=== PATIENT | female | born 2005 | race Caucasian/White ===

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

== ENCOUNTER → 2024-01-13 07:53 | Outpatient (BNVA) | payer MEDICAID, SELFPAY | PROVIDERS: PCP Student in an Organized Health Care Education/Training Program; Visit Provider Obstetrics & Gynecology | DX: Z34.91 Encounter for supervision of normal pregnancy, unspecified, first trimester (principal) | CPT/HCPCS: 82950; 84315 ==

== ENCOUNTER → 2024-02-03 12:20 | Outpatient (BNVA) | payer MEDICAID, SELFPAY | PROVIDERS: PCP Student in an Organized Health Care Education/Training Program; Visit Provider Obstetrics & Gynecology | DX: Z34.90 Encounter for supervision of normal pregnancy, unspecified, unspecified trimester (principal) | CPT/HCPCS: 76816 ==

== ENCOUNTER 2024-02-16 15:24 | Emergency (ER) | payer MEDICAID, SELFPAY ==
[2024-02-16 15:48] VITALS: BP 103/61; PULSE 70; RESP 14; TEMP 37.1; O2SAT 97
[2024-02-16 17:53] VITALS: BP 105/63; PULSE 97; RESP 16; O2SAT 100
--- NOTE | 2024-02-16 17:53 | ED_ITS ---
HPI - Nausea/Vomiting/Diarrhea 2 General: Chief complaint: Nausea/Vomiting/Diarrhea Stated complaint: Swollen rectum Time Seen by Provider: 02/16/24 17:06 Source: patient Mode of arrival: ambulatory Limitations: no limitations History of Present Illness: Patient presents emergency department today accompanied by significant other for evaluation treatment of multiple episodes of diarrhea today and rectal pain. Patient states that she had a meal that did not sit well with her last night and began having diarrhea. She states it is liquidy, brown, and somewhat green in color. She states that her in-laws also have similar symptoms from eating the same meal last night. Patient reports developing pain around her rectum now with bowel movements and while trying to wipe clean. She has not noticed any blood. She has not been running fever. She states she had an episode of vomiting this morning but has not had any more since. Patient still feels movement regularly. Review of Systems 2 General: Reports: 10 or more systems reviewed and unremarkable except in HPI and below PFSH ED 2 PFSH: Medical History Psychiatric care MTHFR mutation Family History Other Adopted Social History Substance/Drug Use: never Physical Exam 2 Const: COMMON NORMALS: no acute distress, patient oriented x3 and alert HENMT: COMMON NORMALS: normocephalic, atraumatic, hearing grossly normal bilaterally and moist oral mucous membranes HEAD & SCALP: normocephalic and atraumatic Eye: COMMON NORMALS: Equal, round and reactive pupils present, EOMs intact bilaterally and conjunctivae normal CONJUNCTIVA: Yes conjunctivae normal P UPIL: Yes Equal, round and reactive pupils present Neck/C-Spine: COMMON NORMALS: full ROM and no JVD Lymph: LYMPHATIC: no lymphadenopathy noted Resp: COMMON NORMALS: normal respiratory effort, No retractions, No use of accessory muscles and clear to auscultation bilaterally AUSCULTATION: clear to auscultation bilaterally Cardio: COMMON NORMALS: no JVD, regular rate and regular rhythm RATE: r egular rate RHYTHM: regular rhythm GI: OTHER: Normoactive bowel sounds. Patient has active kicking on palpation and examination of the abdomen. No specific tenderness to the abdomen on palpation. Patient's rectal examination does show some generalized erythema in the area of the rectum. Patient has what appears to be an old skin tag. On investigation further into the rectum, patient is found to have increased vascularity and a purple discoloration just inside the anal opening. No signs of any protruding internal hemorrhoids. No signs of fissuring. No fresh or dried blood present. No signs of lesions, rashes, vesicles, or signs of perirectal abscess. : COMMON NORMALS: Yes no CVA tenderness BLADDER/KIDNEY EXAM: Yes no CVA tenderness Back/Pelvis: COMMON NORMALS: no CVA tenderness, no thoracic nor lumbar tenderness and thoraco-lumbar ROM normal Extremity: COMMON NORMALS: normal to inspection, full ROM and capillary refill normal Neuro: COMMON NORMALS: patient oriented x3 SENSORIUM/ORIENTATION: Yes alert Psych: COMMON NORMALS: mental status grossly normal, Normal thought process present, cooperative, normal affect and activity/motor behavior normal T HOUGHT PROCESS: Normal thought process present Skin: COMMON NORMALS: no rashes or lesions noted and no wounds GENERAL SKIN EXAM: no rashes or lesions noted Course 2 Vital Signs: Vital signs: Vital Signs Temperature 98.8 F 02/16/24 15:48 Pulse Rate 65 02/16/24 21:00 Respiratory Rate 16 02/16/24 21:00 Blood Pressure 106/68 02/16/24 21:00 Pulse Oximetry 99 02/16/24 21:00 Oxygen Delivery Me thod Room Air 02/16/24 21:00 MDM - Nausea/Vomiting/Diarrhea Medical Decision Making Patient presents to the emergency department today for evaluation treatment of approximately 24 hours of multiple episodes of diarrhea. She indicated no signs of bleeding in the stool or on the toilet tissue though she feels tender and sore around her rectum. Patient's rectal examination showed a skin tag but no signs of fissures, fresh blood, or dried blood. Patient had some erythema in the area but no signs of any swelling concerning of a perirectal abscess at this time. Just inside the patient's anus there was dark purple discoloration concerning for engorgement of vasculature suspicious for this being the cause of her rectal discomfort. Patient was not able to produce a stool specimen here in the emergency department for testing. Lab work shows anemia which, previous lab work has not shown any signs of anemia. When asked, patient indicated she has never been told she is anemic in the past. At this time I do not think patient has a GI bleed as her vital signs have remained stable-she is normotensive and nontachycardic. She also indicated no signs of bleeding in her stool. I did mention this to her and requested she have a recheck of these labs with either her primary care or CLOTH WINDER MACHINE OPERATOR in a few days. Warned her of the symptoms of anemia including dizziness, shortness of breath, pale skin, intense fatigue. She will be watching for these. Patient does have findings of urinary tract infection. First dose of antibiotics provided here in the emergency department as well as an application of Anusol to help with her rectal discomfort. She will need to continue outpatient antibiotics as well. Patient was given an informational handout about approved [id number] medications in that indicates treatment for diarrhea, hemorrhoids, and constipation for her to have on hand. Strict return precautions were given to her given her status but would request she follow-up with her CLOTH WINDER MACHINE OPERATOR here in a couple of days. She verbalizes understanding and agreement to treatment plan. Differential Diagnosis Likely gastroenteritis; Unlikely traveler's diarrhea, food poisoning, drug- induced nausea and vomiting or dehydration Lab Data 02/16/24 18:24 02/16/24 18:24 Laboratory Results WBC 12.06 10^3/uL (4.5-13.0) 02/16/24 18:24 RBC 3.31 10^6/uL (3.85-5.65) L 02/16/24 18:24 Hgb 9.70 g/dL (12.4-14.8) L 02/16/24 18:24 Hct 29.6 % (36-47) L 02/16/24 18:24 MCV 89.4 fl (85-98) 02/16/24 18:24 MCH 29.3 pg (27-33) 02/16/24 18:24 MCHC 32.8 g/dL (30-55) 02/16/24 18:24 RDW 14.1 % (12.1-15.1) 02/16/24 18:24 Plt Count 281 10^3/cmm (157-399) 02/16/24 18:24 MPV 10.0 fL (7.4-10.4) 02/16/24 18:24 Neut % (Auto) 69.3 % 02/16/24 18:24 Lymph % (Auto) 20.6 % 02/16/24 18:24 Walker % (Auto) 7.0 % 02/16/24 18:24 Eos % (Auto) 2.0 % 02/16/24 18:24 Baso % (Auto) 0.5 % 02/16/24 18:24 Neut # (Auto) 8.36 10^3/uL (1.8-8.0) H 02/16/24 18:24 Lymph # (Auto) 2.5 10^3/uL (1.5-6.5) 02/16/24 18:24 Walker # (Auto) 0.9 10^3/uL (0.2-0.9) 02/16/24 18:24 Eos # (Auto) 0.2 10^3/uL (0.0-0.8) 02/16/24 18:24 Baso # (Auto) 0.1 10^3/uL (0.0-0.1) 02/16/24 18:24 Nucleated RBC % (auto) 0 % 02/16/24 18:24 Nucleated RBCs # 0.0 /100WBC 02/16/24 18:24 Sodium 141 mmol/L (136-145) 02/16/24 18:24 Potassium 3.7 mmol/L (3.5-5.1) 02/16/24 18:24 Chloride 110 mmol/L (98-107) H 02/16/24 18:24 Carbon Dioxide 21 mmol/L (22-29) L 02/16/24 18:24 Anion Gap 13.7 (5-19) 02/16/24 18:24 BUN 6 mg/dL (6-20) 02/16/24 18:24 Creatinine 0.4 mg/dL (0.5-0.9) L 02/16/24 18:24 GFR Calculation 205.6 mL/min (90-130) H 02/16/24 18:24 Glucose 91 mg/dL (65-115) 02/16/24 18:24 Calculated Osmolality 289 mOsm/kg (285-295) 02/16/24 18:24 Calcium 8.2 mg/dL (8.5-10.5) L 02/16/24 18:24 Total Bilirubin 0.2 mg/dL (0.15-1.2) 02/16/24 18:24 AST 20 U/L (0-32) 02/16/24 18:24 ALT 15 U/L (0-33) 02/16/24 18:24 Alkaline Phosphatase 68 U/L (35-105) 02/16/24 18:24 Total Protein 6.4 g/dL (6.6-8.7) L 02/16/24 18:24 Albumin 3.5 g/dL (3.5-5.2) 02/16/24 18:24 Globulin 2.9 g/dL (1.3-4.6) 02/16/24 18:24 Urine Color Yellow (Yellow) 02/16/24 18:20 Urine Appearance Slightly cloudy (CLEAR) 02/16/24 18:20 Urine pH 6.5 (5-7) 02/16/24 18:20 Ur Specific [place] 1.015 (1.005-1.030) 02/16/24 18:20 Urine Protein Neg (Negative) 02/16/24 18:20 Urine Glucose (UA) Norm (Normal) 02/16/24 18:20 Urine Ketones 1+ (Negative) H 02/16/24 18:20 Urine Blood Neg (Negative) 02/16/24 18:20 Urine Nitrate Negative (Negative) 02/16/24 18:20 Urine Bilirubin Neg (Negative) 02/16/24 18:20 Urine Urobilinogen Norm mg/dL (Negative) 02/16/24 18:20 Ur Leukocyte Esterase 1+ (Negative) H 02/16/24 18:20 Urine RBC None /hpf (0-2) 02/16/24 18:20 Urine WBC 40-55 /hpf (0-5) H 02/16/24 18:20 Ur Squamous Epith Cells 5-10 /hpf (0-5) H 02/16/24 18:20 Amorphous Sediment Not Reportable 02/16/24 18:20 Urine Bacteria 3+ /hpf (NONE) H 02/16/24 18:20 Urine Mucus 2+ /hpf 02/16/24 18:20 No radiology studies performed this visit Discharge Plan Discharge Patient Disposition: Home Clinical Impression: Gastroenteritis, Anemia affecting , UTI in Condition: Stable Prescriptions: New cephalexin 500 mg capsule 500 mg PO Q6H 10 Days Qty: 40 0RF Anusol-HC 2.5 % cream with perineal applicator 1 applic OR TID PRN (Reason: pain) Qty: 30 0RF No Action albuterol sulfate [ProAir HFA] 90 mcg/actuation HFA aerosol inhaler 2 puff inhalation Q6H PRN (Reason: shortness of breath or wheezing) Qty: 8.5 0RF (DME) Aerochamber Plus Z Stat Spacer See Rx Instructions .Route Qty: 1 0RF Rx Instructions: As directed nicotine 14 mg/24 hr patch 24 hour 1 patch transdermal DAILY Qty: 28 3RF Discharge Orders: Discharge ED (Routine); Ordered 02/16/24 Ordered By: Alejandra Kern Discharge Diet: Usual diet Discharge Activity: Increase activity as tolerated Patient Instructions: Hemorrhoids, Anemia (ED), Urinary Tract Infection in (ED), Rectal Pain (ED) Activity Restrictions/Additional Instructions: Rectal examination today revealed no signs of any acute concerns such as a perirectal abscess. Will you do have a skin tag, I do not see any obvious signs of external hemorrhoids. However, just within your anal opening there is noticeable increased vascularity causing the skin to be a purple color. This can be due to increased pressure on your pelvis from your and, irritated by your recent diarrhea. You most likely have a gastroenteritis secondary from something you ate but, as we were unable to gather a sample today, were not able to do any testing for bacterial cause. We did find a bacterial urinary tract infection and provided your first dose of medication here in the ER. I am also providing you a prescription to be picked up and continued for Joseph in the morning. We provided you some medication for rectal discomfort here in the ER and have also sent a prescription to the pharmacy for you to have and continue. It contains a rectal applicator tip which will allow you to insert the medication further up into your rectum where you are finding of increased vascularity was noted. You can also do sitz bath's to help with rectal discomfort. You can apply Tucks medicated witch lea pads to the area for comfort. You can also use a blue top Dermoplast to help numb the area of any discomfort. Be sure you only use the blue top as the red top will actually cause a burning sensation. We found signs of anemia on your evaluation today but, as you do not have any signs of rectal bleeding and, have no previous history of lower hemoglobin levels, I would like you to have follow-up with either your primary care doctor or your CLOTH WINDER MACHINE OPERATOR in approximately 48 to 72 hours for recheck of these labs. As we discussed, anemia symptoms can be dizziness, lightheadedness, shortness of breath, or intense fatigue. If these begin to develop you need to be seen and reevaluated sooner. Watch for any change or worsening in your condition. If there are any change or worsening you need to be seen and reevaluated. This would include any signs of blood per rectum, fever, or abdominal pains. Increase your clear fluids to stay well-hydrated during this time. Coding Level of Care Code ED Systems Software Specialist for Prabhjot Marrero
[2024-02-16 18:36] LABS: Basophils # 0.1 10^3/uL (0.0-0.1); Basophils % 0.5 %; Eosinophils # 0.2 10^3/uL (0.0-0.8); Hematocrit 29.6 % (36-47); Lymphocytes # 2.5 10^3/uL (1.5-6.5); Lymphocytes % 20.6 %; Mean Corpuscular HGB Conc 32.8 g/dL (30-55); Mean Corpuscular Hemoglobin 29.3 pg (27-33); Mean Corpuscular Volume 89.4 fl (85-98); Monocytes # 0.9 10^3/uL (0.2-0.9); Neutrophils # 8.36 10^3/uL (1.8-8.0); Neutrophils % 69.3 %; Nucleated Red Blood Cells % 0 %; Platelet Count 281 10^3/cmm (157-399); Red Blood Count 3.31 10^6/uL (3.85-5.65); Red Cell Distribution Width 14.1 % (12.1-15.1); White Blood Count 12.06 10^3/uL (4.5-13.0)
[2024-02-16] MEDS: sodium chloride 0.9% 1,000 ML 999 ML IV (18:36)
[2024-02-16 18:49] LABS: Albumin Level 3.5 g/dL (3.5-5.2); Alkaline Phosphatase 68 U/L (35-105); Anion Gap 13.7 (5-19); Aspartate Amino Transferase 20 U/L (0-32); Blood Urea Nitrogen 6 mg/dL (6-20); Calcium 8.2 mg/dL (8.5-10.5); Carbon Dioxide 21 mmol/L (22-29); Chloride 110 mmol/L (98-107); Creatinine Clr Calc Pharmacy 208.1741; Globulin 2.9 g/dL (1.3-4.6); Glomerular Filtration Rate 205.6 mL/min (90-130); Glucose 91 mg/dL (65-115); Osmolality Calculated 289 mOsm/kg (285-295); Potassium 3.7 mmol/L (3.5-5.1); Sodium 141 mmol/L (136-145); Total Bilirubin 0.2 mg/dL (0.15-1.2); Total Protein 6.4 g/dL (6.6-8.7)
[2024-02-16 18:54] LABS: Add Urine Microscopic? YES; Bilirubin Urine Neg (Negative); Blood Urine Neg (Negative); Glucose Urine UA Norm (Normal); Ketones Urine 1+ (Negative); Leukocyte Esterase Urine 1+ (Negative); Nitrate Urine Negative (Negative); Protein Urine Neg (Negative); Specific Gravity, Urine 1.015 (1.005-1.030); Urine Appearance Slightly Cloudy (CLEAR); Urine Color Yellow (Yellow); Urobilinogen Urine Norm (Negative); pH Urine 6.5 (5-7)
[2024-02-16 18:55] LABS: Add Urine Culture? Yes; Bacteria Urine 3+ /hpf; Mucus Urine 2+ /hpf; WBC Urine 40-55 /hpf (0-5)
[2024-02-16 19:00] VITALS: BP 108/65; PULSE 77; RESP 14; O2SAT 99
[2024-02-16 19:00] LABS: Alanine Aminotransferase 15 U/L (0-33)
[2024-02-16] MEDS: cefTRIAXone 1,000 MG in sodium chloride 0.9% (plus) 50 ML 100 MG IV (20:19)
[2024-02-16 21:00] VITALS: BP 106/68; PULSE 65; RESP 16; O2SAT 99
[2024-02-16] MEDS: hydrocortisone 2.5% cream 28 gm 1 APPLIC PR (21:02)
== END 2024-02-16 21:45 | disposition home or self-care (01) ==
PROVIDERS: Physician Assistant; Emergency Provider Physician Assistant
DX: O23.40 Unspecified infection of urinary tract in pregnancy, unspecified trimester (principal); N39.0 Urinary tract infection, site not specified; O99.019 Anemia complicating pregnancy, unspecified trimester; D64.9 Anemia, unspecified; O99.619 Diseases of the digestive system complicating pregnancy, unspecified trimester; K52.9 Noninfective gastroenteritis and colitis, unspecified
CPT/HCPCS: 36415; 80053; 81001; 85025; 87086; 96361; 96365; 99284; J0696; J7030

== ENCOUNTER → 2024-03-09 08:02 | Outpatient (BNVA) | payer MEDICAID, SELFPAY | PROVIDERS: Visit Provider Obstetrics & Gynecology | DX: Z34.91 Encounter for supervision of normal pregnancy, unspecified, first trimester (principal) | CPT/HCPCS: 84315; 87081 ==

== ENCOUNTER 2024-04-04 21:42 | Inpatient (IN) | payer MEDICAID, SELFPAY ==
[2024-04-04] VITALS (31 sets, daily range): BP systolic 101–140; BP diastolic 58–85; PULSE 49–174; TEMP 35.9; O2SAT 86–100; BMI 25.3
[2024-04-04 21:17] LABS: Basophils # 0.1 10^3/uL (0.0-0.1); Basophils % 0.9 %; Eosinophils # 0.1 10^3/uL (0.0-0.8); Eosinophils % 0.7 %; Hematocrit 35.8 % (36-47); Lymphocytes # 2.7 10^3/uL (1.5-6.5); Lymphocytes % 22.6 %; Mean Corpuscular HGB Conc 31.8 g/dL (30-55); Mean Corpuscular Volume 84.8 fl (85-98); Mean Platelet Volume 10.9 fL (7.4-10.4); Monocytes # 0.9 10^3/uL (0.2-0.9); Monocytes % 7.3 %; Neutrophils # 8.19 10^3/uL (1.8-8.0); Nucleated Red Blood Cells % 0 %; Platelet Count 373 10^3/cmm (157-399); Red Blood Count 4.22 10^6/uL (3.85-5.65); White Blood Count 12.06 10^3/uL (4.5-13.0)
[2024-04-04] MEDS: lactated ringers 1,000 ML 999 ML IV ×2 (21:17→22:22)
[2024-04-04 21:27] LABS: Amphetamines Screen Urine Negative (Negative); Barbiturates Screen Urine Negative (Negative); Benzodiazepines Screen Urine Negative (Negative); Cocaine Screen Urine Negative (Negative); Opiate Screen Urine Negative (Negative); PCP Screen Urine Negative (Negative); THC Screen Urine Negative (Negative)
[2024-04-04] MEDS: ROPivacaine syringe 100 MG/50 ML SYRINGE 10 MG EPIDURAL (22:25)
--- NOTE | 2024-04-04 22:29 | P.ANESASSM_ITS ---
Pre-Anesthetic Assessment Height/Weight: Height 1.6 m Weight 64.864 kg Pulse BP Pulse Ox O2 Del Method 63 137/66 100 Room Air 04/04/24 22:25 04/04/24 22:25 04/04/24 22:25 04/04/24 22:12 Preop Diagnosis: Labor pain DONAL Was Beta Vicente taken within 24 hours: N/A Was Clonidine taken within 24 hours: N/A Social Tobacco Recently quit THC Exam alert, oriented x 3, clear to auscultation bilaterally and regular rate & rhythm Airway Submandibular: within normal limits Cervical ROM: within normal limits Mallampati: Class II Dentition: full History/ROS No significant history except as noted and No significant complaints Pulmonary Asthma CV/HEM None reported None reported Hepatic None reported GI None reported Metabolic None reported Musc/skel None reported Neuropsych Depression and Seizure Anesthetic Plan ASA status: 2 Anesthesia: Anesthesia Evaluation and Regional (specify below) (DONAL) Risk of > 500 ml blood loss (7ml/kg in children): No Medications/Allergies Home Medications Medication Instructions Recorded Confirmed Last Taken Type albuterol sulfate 90 mcg/actuation 2 puff inhalation Q6H PRN 06/18/21 04/04/24 Unknown Rx aerosol inhaler (ProAir HFA) shortness of breath or wheezing #8.5 grams inhalational spacing device #1 ea 01/07/22 04/04/24 Unknown Rx (Aerochamber Plus Z Stat spacer) sertraline 50 mg tablet (Zoloft) 50 mg PO DAILY 03/23/24 04/04/24 04/03/24 History Allergies Allergy/AdvReac Type Severity Reaction Status Date / Time Sulfa (Sulfonamide Allergy ALGY-Hives Verified 04/04/24 20:27 Antibiotics) Current Medications Generic Name Dose Route Start Last Admin Trade Name Freq PRN Reason Stop Dose Admin Lactated Ringer's 1,000 mls @ 999 mls/hr 04/04/24 20:40 04/04/24 22:22 Lactated Ringers IV 999 mls/hr .Q1H1M PRN Administration See label comments Ropivacaine 100 mg in 50 mls @ 10 mls/hr 04/04/24 20:45 04/04/24 22:25 Naropin Syringe EPIDURAL 10 mls/hr .Q5H CORINNE Administration PFSH Anesthesia Medical History Psychiatric care MTHFR mutation Family History Other Adopted Social History Smoking and tobacco/nicotine status: current every day tobacco/nicotine user Substance/Drug Use: never Female Reproductive History : 1 Data Anesthesia 04/04/24 20:47 Short CBC 04/04/24 Range/Units 20:47 WBC 12.06 (4.5-13.0) 10^3/uL Hgb 11.40 L (12.4-14.8) g/dL Hct 35.8 L (36-47) % MCV 84.8 L (85-98) fl Plt Count 373 (157-399) 10^3/cmm Neut % (Auto) 68.0 % Neut # (Auto) 8.19 H (1.8-8.0) 10^3/uL Blood Bank 04/04/24 20:47 Blood Type A Positive Rho(D) Type Rh positive Antibody Screen Negative Cardiac Studies: 2 No Data to Display
--- NOTE | 2024-04-04 22:32 | ANES.PROC ---
Anesthesia Procedures Procedure/Date: 04/04/24 Epidural: Time Out Performed: Yes Consents Signed: Procedure Consent Consent: requested by attending/covering physician, from patient, risks and benefits reviewed and patient agrees to proceed Lumbar Level: L3-L4 Epidural position: sitting Epidural procedure: sterile prep of area, 1% lidocaine to numb the area, 18 g needle, neg for paresthesia, test dose given, 1.5% xylocaine 1:200k epi (4cc), 0.2% Ropivacaine bolus ml (4cc and fentanyl 100 mcg), placed PCEA, no systemic response, sterile dressing applied, L.U.D. no apparent complications and 0.2% Ropiavacaine @ mls/hr (10cc/hour. Pt tolerated well)
[2024-04-05] VITALS (31 sets, daily range): BP systolic 106–154; BP diastolic 59–87; PULSE 53–149; RESP 16–18; TEMP 36.1–36.9; O2SAT 98–99
[2024-04-05] MEDS: ROPivacaine syringe 100 MG/50 ML SYRINGE 10 MG EPIDURAL (01:27)
--- NOTE | 2024-04-05 03:00 | PC.NURSE ---
Beltran catheter was discontinued when patient was repositioned. Catheter was discovered still strapped to patient's thigh out of the urethra and the balloon was not inflated. Catheter was replaced. Patient tolerated the procedure well.
[2024-04-05] MEDS: ROPivacaine syringe 100 MG/50 ML SYRINGE 13 MG EPIDURAL ×2 (03:26→05:25)
[2024-04-05] MEDS: dextrose 5%-lactated ringers 1,000 ML 125 ML IV (04:45)
[2024-04-05] MEDS: oxytocin 30 UNIT/500 ML BAG 600 UNIT IV (07:51)
[2024-04-05] MEDS: lidocaine 2% INJ 20 mL INJECTION (08:10)
--- NOTE | 2024-04-05 08:39 | PM.OPHPUD ---
Labor & Delivery H&P Update Date of Procedure: April 05, 2024 Date H&P Performed: 03/30/24 H&P update information: I have reviewed H&P completed within last 30 days, I have examined patient prior to procedure and Changes to prior documentation as noted here (Active labor: cervix at 5 cm) Admission Diagnosis: Preop diagnosis: Labor pain
--- NOTE | 2024-04-05 08:40 | PM.DELIVERY ---
Delivery Note: Date of delivery: April 05, 2024 Pre-delivery diagnoses: Term Post-delivery diagnoses: Term delivered Procedure: Spontaneous vaginal delivery Delivering Physician: Robert Mcelroy MD Estimated blood loss (mL): 300 Pre-Delivery Course: Ms. Lai is a 18 year old patient, according to first ultrasound, DODIE 04/06/24, placing her at 39-0/7 weeks today. who has been receiving care from [facility]. She has been experiencing painful uterine contractions for the past 4 hours. The contractions are occurring at 4 minute intervals with approximately 30 second duration. She continues to feel movement between the contractions. She denies vaginal bleeding or rupture of membranes. CC: Onset of labor at term. HPI: Received appropriate care. Daily vitamins since start of care. labs have all been normal, including negative for HIV. She was found to negative for Group B Strep from screening at 36 weeks. She has gained approximately 30 lbs throughout the . She denies a history of HTN during . Glucose tolerance screening for gestational diabetes was negative. Delivery: The patient was noted to be complete and pushing, so was placed in the dorsal lithotomy position, prepped and draped in the usual sterile fashion for a vaginal delivery. Pt. Noted to have epidural anesthesia. At 0748 the patient delivered a viable term female weighing 3110 g with scores of 8 and 9 at one and five minutes, respectively. The vertex was delivered spontaneously over intact. The patient was asked to push and the head delivered spontaneously in the MITCH position, over an intact perineum. A nuchal cord was checked and none noted. The anterior shoulder delivered easily and the posterior shoulder followed. The remainder of the infant was easily delivered and the oropharynx and nasopharynx was bulb suctioned. The was noted to have spontaneous cry and spontaneous movement of all four extremities. The cord was clamped x 2 and cut and noted to have 2 arteries and one vein. The infant was passed to the mother's abdomen where nursing personnel were in attendance. The placenta delivered intact spontaneously and the uterus was explored. 20 units of Pitocin was placed in the IV bag to firm the uterus. Examination of the cervix and vaginal vault did not reveal any lacerations. Examination of the perineum showed second-degree laceration. The laceration was repaired with 3-0 Vicryl in the normal fashion in a running non locking fashion to reapproximate the laceration in layers. The patient tolerated this procedure well, and recovered in L&D with her [or note if infant taken to NICU]. All sponge and needle counts were correct. History History History 1 Term 0 Miscarriages/Ectopic Living Children Coding Level of Care Code Acute Code for Chg Fwd
[2024-04-05] MEDS: docusate sodium 100 mg Capsule PO ×2 (10:32→20:49)
[2024-04-05] MEDS: PRENATAL VIT NO.130/IRON/FOLIC 1 EACH TABLET PO (10:32)
[2024-04-05] MEDS: lanolin oint 7 gm 1 APPLIC TOPICAL (10:32)
[2024-04-05] MEDS: benzocaine-menthol 78 gm Canister 1 SPRAY TOPICAL (10:32)
[2024-04-05] MEDS: sertraline 50 mg Tablet PO (10:32)
[2024-04-05] MEDS: ibuprofen 800 mg tablet PO ×2 (10:32→20:48)
[2024-04-05 21:41] LABS: Mean Corpuscular HGB Conc 31.8 g/dL (30-55); Mean Corpuscular Hemoglobin 27.1 pg (27-33); Mean Corpuscular Volume 85.4 fl (85-98); Mean Platelet Volume 11.2 fL (7.4-10.4); Platelet Count 314 10^3/cmm (157-399); Red Blood Count 3.28 10^6/uL (3.85-5.65); Red Cell Distribution Width 14.1 % (12.1-15.1)
[2024-04-06 06:34] VITALS: BP 116/74; PULSE 67; RESP 16; TEMP 36.6; TEMP 36.7; O2SAT 99
[2024-04-06] MEDS: HYDROcodone-acetaminophen 5-325 mg Tablet PO (06:34)
[2024-04-06] MEDS: sertraline 50 mg Tablet PO (08:06)
[2024-04-06] MEDS: PRENATAL VIT NO.130/IRON/FOLIC 1 EACH TABLET PO (08:06)
[2024-04-06] MEDS: docusate sodium 100 mg Capsule PO ×2 (08:06→20:38)
[2024-04-06] MEDS: ibuprofen 800 mg tablet PO ×3 (08:06→20:38)
[2024-04-06 10:00] VITALS: BP 121/73; PULSE 76; PULSE 78; RESP 18; TEMP 36.8; O2SAT 97; O2SAT 99
--- NOTE | 2024-04-06 12:35 | PM.OBGYPN ---
LEARNING CENTER COORDINATOR Subjective Subjective: Interval history: no c/o no headaches, dizziness, nausea, abdominal pain, bleeding normal lochia mild perineal pain, relieved with pain meds eating, voiding, ambulating well Labor: Station: +2 Amniotic Membrane Status: Ruptured Monitor Mode: External Contraction Pattern: Irregular Status: Category I Vitals/I&O/Wt Last Vital Signs Temp 98.0 F 04/06/24 16:30 Pulse 61 04/06/24 16:30 Resp 16 04/06/24 16:30 BP 113/63 04/06/24 16:30 Pulse Ox 97 04/06/24 10:00 O2 Del Method Room Air 04/06/24 10:00 Physical Exam Narrative: afebrile, VS normal comfortable, awake, alert Abd: soft, nontender. fundus firm Ext: no edema; nontender Urinary Catheter Management: Beltran: Cath Placed During This Visit: yes, but has since been removed by the nurse Reason for Continuing Indwelling Catheter: Decision to DC Catheter Urinary Catheter Date of Insertion: 04/04/24 Urinary Catheter Time of Insertion: 20:20 Date Urinary Catheter Removed: 04/05/24 Time Urinary Catheter Discontinued: 07:15 Data 04/05/24 20:20 A&P Assessment and plan (1) Vaginal delivery: PPD #1 vaginal delivery doing well normal course continue care Attestations Medical Necessity Statement*: patient s/p vaginal delivery, for care Coding Level of Care Code Acute Code for Chg Fwd Diagnoses Vaginal delivery O80 Time Spent (min) 20
--- NOTE | 2024-04-06 12:40 | PM.PN ---
Subjective Subjective: Ms. Lai is a 18 year old patient, status post spontaneous vaginal delivery date 1 Vitals/I&O/Wt Last Vital Signs Temp 98.3 F 04/07/24 04:27 Pulse 67 04/07/24 04:27 Resp 16 04/07/24 04:27 BP 121/83 04/07/24 04:27 Pulse Ox 97 04/07/24 04:27 O2 Del Method Room Air 04/07/24 04:27 Physical Exam Narrative: GA; alert and oriented x 3 HEENT: normal Breasts: engorged Nipples - skin intact Lungs; clear to auscultation Heart: regular rhythm, no murmurs. Abd: Appropriately tender. BS+. Uterine fundus below umbilicus. No Fundal Tenderness. Perineum: normal lochia. Extremities: no edema, no cyanosis, no tenderness. Urinary Catheter Management: Beltran: Cath Placed During This Visit: yes, but has since been removed by the nurse Reason for Continuing Indwelling Catheter: Decision to DC Catheter Urinary Catheter Date of Insertion: 04/04/24 Urinary Catheter Time of Insertion: 20:20 Date Urinary Catheter Removed: 04/05/24 Time Urinary Catheter Discontinued: 07:15 Data 04/05/24 20:20 A&P Assessment and plan (1) Term delivered: Ms. Lai is a 18 year old patient, had a spontaneous vaginal delivery at an estimated gestational age of 39+5 days according to first ultrasound, DODIE 04/06/24. She delivered a female with a birthweight of 3110 g and Apgars 8/9. Infant under observation. Patient is afebrile and hemodynamically stable day 1. Tolerating diet well. Ambulating without difficulty. Plan Continue observation. Attestations Medical Necessity Statement*: In my professional opinion per meeting diagnosis Coding Level of Care Code Acute Code for Chg Fwd Diagnoses Term delivered O80
--- NOTE | 2024-04-06 14:05 | ANE.PACU2 ---
Inpatient post-anesthesia follow up: Airway intact: Yes Vital signs: Temperature 98.0 F Pulse Rate 78 Respiratory Rate 18 Blood Pressure 116/74 Pulse Oximetry 99 Oxygen Delivery Me thod Room Air Oxygen Flow Rate Fraction of Inspir ed Oxygen Hydration adequate: Yes Nausea and vomiting: No Pain level: 2 Mental status: Baseline Epidural Start/End: Epidural Start Date: 04/04/24 Epidural Start Time: 22:06 Epidural End Date: 04/05/24 Epidural End Time: 08:40
[2024-04-06 16:30] VITALS: BP 113/63; PULSE 61; RESP 16; TEMP 36.6; TEMP 36.7
[2024-04-06 21:30] VITALS: BP 126/79; PULSE 70; RESP 16; TEMP 37; O2SAT 97
[2024-04-07] MEDS: HYDROcodone-acetaminophen 5-325 mg Tablet PO (04:26)
[2024-04-07 04:27] VITALS: BP 121/83; PULSE 67; RESP 16; TEMP 36.8; O2SAT 97
--- NOTE | 2024-04-07 07:46 | PM.OBGYDC ---
Discharge Providers [employer] Date of Admission: 04/04/24 21:42 Date of Discharge: 04/07/24 Attending Provider at Admission: Robert Mcelroy MD Attending Provider at Discharge: Robert Mcelroy MD Diagnoses at Discharge Discharge Diagnosis (1) Term delivered: Status: Acute Reason for Visit Reason for Visit: Contractions Hospital Course Hospital Course Ms. Lai is a 18 year old patient, had a spontaneous vaginal delivery at an estimated gestational age of 39+5 days according to first ultrasound, DODIE 04/06/24. She delivered a female with a birthweight of 3110 g and Apgars 8/9. under observation. Patient is afebrile and hemodynamically stable day 2. Tolerating diet well. Ambulating without difficulty. She was counseled regarding pelvic rest for 6 weeks (no sex, no tampons, no vaginal douches). Return to the emergency room if any fever, increased bleeding or pain. Information Peripartum Data: Delivery Method: Vaginal Physical Exam Narrative: GA; alert and oriented x 3 HEENT: normal Breasts: engorged Nipples - skin intact Lungs; clear to auscultation Heart: regular rhythm, no murmurs. Abd: Appropriately tender. BS+. Uterine fundus below umbilicus. No Fundal Tenderness. Perineum: normal lochia. Extremities: no edema, no cyanosis, no tenderness. Urinary Catheter Management: Beltran: Cath Placed During This Visit: yes, but has since been removed by the nurse Reason for Continuing Indwelling Catheter: Decision to DC Catheter Urinary Catheter Date of Insertion: 04/04/24 Urinary Catheter Time of Insertion: 20:20 Date Urinary Catheter Removed: 04/05/24 Time Urinary Catheter Discontinued: 07:15 History History History 1 Term 0 Miscarriages/Ectopic Living Children Discharge Data Studies Completed and Pending Laboratory Results WBC 21.80 10^3/uL (4.5-13.0) H 04/05/24 20:20 RBC 3.28 10^6/uL (3.85-5.65) L 04/05/24 20:20 Hgb 8.90 g/dL (12.4-14.8) L 04/05/24 20:20 Hct 28.0 % (36-47) L 04/05/24 20:20 MCV 85.4 fl (85-98) 08/05/24 20:20 MCH 27.1 pg (27-33) 04/05/24 20:20 MCHC 31.8 g/dL (30-55) 04/05/24 20:20 RDW 14.1 % (12.1-15.1) 04/05/24 20:20 Plt Count 314 10^3/cmm (157-399) 04/05/24 20:20 MPV 11.2 fL (7.4-10.4) H 04/05/24 20:20 Neut % (Auto) 68.0 % 04/04/24 20:47 Lymph % (Auto) 22.6 % 04/04/24 20:47 Gregory % (Auto) 7.3 % 04/04/24 20:47 Eos % (Auto) 0.7 % 04/04/24 20:47 Baso % (Auto) 0.9 % 04/04/24 20:47 Neut # (Auto) 8.19 10^3/uL (1.8-8.0) H 04/04/24 20:47 Lymph # (Auto) 2.7 10^3/uL (1.5-6.5) 04/04/24 20:47 Gregory # (Auto) 0.9 10^3/uL (0.2-0.9) 04/04/24 20:47 Eos # (Auto) 0.1 10^3/uL (0.0-0.8) 04/04/24 20:47 Baso # (Auto) 0.1 10^3/uL (0.0-0.1) 04/04/24 20:47 Nucleated RBC % (auto) 0 % 04/04/24 20:47 Nucleated RBCs # 0.0 /100WBC 04/04/24 20:47 Urine Opiates Screen Negative ng/mL (Negative) 04/04/24 20:47 Ur Barbiturates Screen Negative ng/mL (Negative) 04/04/24 20:47 Ur Phencyclidine Scrn Negative ng/mL (Negative) 04/04/24 20:47 Ur Amphetamines Screen Negative ng/mL (Negative) 04/04/24 20:47 U Benzodiazepines Scrn Negative ng/mL (Negative) 04/04/24 20:47 Urine Cocaine Screen Negative ng/mL (Negative) 04/04/24 20:47 U Marijuana (THC) Screen Negative ng/mL (Negative) 04/04/24 20:47 Blood Type A Positive 04/04/24 20:47 Rho(D) Type Rh positive 04/04/24 20:47 Antibody Screen Negative 04/04/24 20:47 Vitals Last Vital Signs Temp 98.3 F 04/07/24 04:27 Pulse 67 04/07/24 04:27 Resp 16 04/07/24 04:27 BP 121/83 04/07/24 04:27 Pulse Ox 97 04/07/24 04:27 O2 Del Method Room Air 04/07/24 04:27 Results Labs OB ([facility]): Obstetrics US 02/03/24 Blood Type A Positive 04/04/24 Antibody Screen Negative 04/04/24 Hct 28.0 % (36-47) L 04/05/24 Hgb 8.90 g/dL (12.4-14.8) L 04/05/24 Rho(D) Type Rh positive 04/04/24 Plt Count 314 10^3/cmm (157-399) 04/05/24 Hep Bs Antigen Non-reactive (Nonreactive) 09/16/23 Hepatitis C Antibody Non-reactive (Nonreactive) 09/16/23 Rubella IgG Antibody 148.4 IU/mL (0.0-10.0) H 09/16/23 RPR Nonreactive (Nonreactive) 09/16/23 HIV 1&2 Ab & HIV 1 Ag Non-reactive (Non-Reactiv) 09/16/23 TSH 1.83 uIU/mL (0.27-4.20) 09/16/23 Free T4 1.27 ng/dL (0.93-1.60) 09/16/23 C.trachomatis RNA (TMA) Not detected (NOT DETECTED) 09/16/23 N.gonorrhoeae RNA (TMA) Not detected (NOT DETECTED) 09/16/23 Chlamydia/GC Comment See note 09/16/23 Cystic Fibrosis Screen Negative 09/16/23 Glucose 1 Hr 50 gm 107 mg/dL (85-140) 01/13/24 Hemoglobin A1c 5.3 % (4.0-6.0) 08/30/22 FSH 2.6 mIU/mL 06/21/22 Total Estradiol 118.6 pg/mL 06/21/22 Ser , Semi-Qnt < 1.00 mIU/mL 06/21/22 HCG, Qual Positive (Negative) H 08/28/23 Urine Opiates Screen Negative ng/mL (Negative) 04/04/24 Ur Barbiturates Screen Negative ng/mL (Negative) 04/04/24 Ur Phencyclidine Scrn Negative ng/mL (Negative) 04/04/24 Ur Amphetamines Screen Negative ng/mL (Negative) 04/04/24 U Benzodiazepines Scrn Negative ng/mL (Negative) 04/04/24 Urine Cocaine Screen Negative ng/mL (Negative) 04/04/24 U Marijuana (THC) Screen Negative ng/mL (Negative) 04/04/24 Micro Urine Specimen 02/16/24 Prolactin 11.71 ng/mL (4.8-23.3) 06/21/22 Discharge Plan Discharge Patient Disposition: Home Condition: Stable Prescriptions: New acetaminophen 325 mg capsule 325 mg PO Q4H PRN (Reason: fever or pain) Qty: 60 0RF docusate sodium [Colace] 100 mg capsule 100 mg PO BID Qty: 60 0RF ferrous sulfate [Iron (ferrous sulfate)] 325 mg (65 mg iron) tablet 325 mg PO BID Qty: 60 0RF ibuprofen 800 mg tablet 800 mg PO TID PRN (Reason: pain) Qty: 60 0RF Continued albuterol sulfate [ProAir HFA] 90 mcg/actuation HFA aerosol inhaler 2 puff inhalation Q6H PRN (Reason: shortness of breath or wheezing) Qty: 8.5 0RF (DME) Aerochamber Plus Z Stat Spacer See Rx Instructions .Route Qty: 1 0RF Rx Instructions: As directed sertraline [Zoloft] 50 mg tablet 50 mg PO DAILY Discharge Orders: Discharge Order (Routine); Ordered 04/07/24 Ordered By: Robert Mcelroy Referrals: Robert Mcelroy MD [Physician] - Cayden Patel MD [Physician] - 6 Weeks Discharge Diet: Usual diet Discharge Activity: Limit activity as instructed Patient Instructions: Depression (DC), Opioid Safety (DC), Preeclampsia and Eclampsia After Delivery (GEN), Hemorrhage (DC), OB Discharge Report, OB Food/Drug Interaction Guide, Opioid Safety, OB Home Care, OB Vaginal Deliveries - [facility], Abnormal Bleeding Activity Restrictions/Additional Instructions: 1. Please call [facility] on next working day to make your appointment in [address] Patel. 2. Please stay home until you come back to the clinic on first post-hospatilization check up. 3. Please follow instructions on your medications CAREFULLY. 4. If you have abdominal incision, do not cover it unless dressing is necessary because of drainage. OK to shower, but avoid bath. Leave steri-strips until they fall off. If they are still on one week after surgery, you may remove them. 5. If you had vaginal surgery or vaginal repair, Dr. Mcelroy may instruct you to take SITZ bath. 6. Yellow, blood tinged odorous vaginal discharge is usually normal after hysterectomy or vaginal surgeries. 7. No SEXUAL INTERCOURSE, tampons, or douches until you are completely released from the post-operative care. 8. Avoid constipation by eating right and maybe using some Metamucil or Milk of Magnesia. 9. All prescription refills are given during the working hours. Please do no wait till it runs out. Call the clinic at [phone] before your medication runs out. The clinic will get in touch with your doctor to prescribe medications if necessary. 10. Please remain within 40 mile radius from our hospital because emergencies do happen now and then during the post-operative period. 11. If you have stairs at home, take one step at a time slowly and minimize the number of trips. It helps to stay in one floor for the next few days. No lifting except what you can lift by one hand until you are released from the post-operative care. 12. Driving is discouraged until you are well healed. It may be 3-4 weeks before you feel strong enough to drive. You should be able to turn and look through the rear window without pain and you should be able to push the brake pedal very hard without pain before you drive. No fast rules, but SAFETY should be your primary concern. DO NOT drive if you are on sedating medications such as narcotics. 13. Call the clinic (during working hours) to make urgent appointment or go to the Emergency room, if any of the following occurs: i. Vaginal bleeding becomes heavy, more than a period. ii. Incision becomes red and sore, or drains pus. iii. Your TEMPERATURE is over 100.4F or you have chill. iv. IV site becomes red and swollen (a little ``knot?? is usually OK) v. Persistent nausea and vomiting vi. Persistent constipation or diarrhea vii. Rash or allergic reaction to medications. Discharge Attestations [employer] Time Spent in Discharge Care*: greater than 30 min Coding Level of Care Code Acute Code for Chg Fwd Diagnoses Term delivered O80
[2024-04-07] MEDS: PRENATAL VIT NO.130/IRON/FOLIC 1 EACH TABLET PO (08:38)
[2024-04-07] MEDS: ibuprofen 800 mg tablet PO (08:38)
[2024-04-07] MEDS: sertraline 50 mg Tablet PO (08:38)
[2024-04-07] MEDS: docusate sodium 100 mg Capsule PO (08:38)
[2024-04-07 10:23] VITALS: BP 121/83; PULSE 67; RESP 16; TEMP 36.8; O2SAT 97
--- NOTE | 2024-04-07 10:24 | PC.NURSE ---
Pt discharged, rooming in with baby until baby's discharge. Baby plans to be discharged on 04/08/24.
== END 2024-04-07 10:25 | disposition home or self-care (01) | DRG 807 ==
LOC: OPOB 21:43 → OBGYN 21:43
PROVIDERS: Admitting Provider Obstetrics & Gynecology; Visit Provider Obstetrics & Gynecology
DX: O99.334 Smoking (tobacco) complicating childbirth (principal); Z37.0 Single live birth; F17.290 Nicotine dependence, other tobacco product, uncomplicated; O99.344 Other mental disorders complicating childbirth; F32.A Depression, unspecified; O70.1 Second degree perineal laceration during delivery; Z3A.39 39 weeks gestation of pregnancy
CPT/HCPCS: 36415; 51702; 59409; 80306; 85025; 85027; 86850; 86900; 96374; 98960; 99211; J2590; J2795; J3010; J7120; J7121

== ENCOUNTER → 2024-06-29 11:37 | Outpatient (BNVA) | payer MEDICAID, SELFPAY | PROVIDERS: PCP Family Medicine; Visit Provider Family Medicine | DX: R42 Dizziness and giddiness (principal); D64.9 Anemia, unspecified | CPT/HCPCS: 80053; 82607; 83550; 85025 ==

== ENCOUNTER → 2025-05-30 12:57 | Outpatient (BNVA) | payer OTHER, SELFPAY | PROVIDERS: PCP Family Medicine; Visit Provider Psychiatry & Neurology Psychiatry | DX: F33.2 Major depressive disorder, recurrent severe without psychotic features (principal); F41.1 Generalized anxiety disorder; F12.20 Cannabis dependence, uncomplicated | CPT/HCPCS: 80061; 83036 ==